=== PATIENT | female | born 1995 ===

== ENCOUNTER 2022-11-05 09:35 | Outpatient (CLI) | payer OTHER, SELFPAY ==
[2022-11-05 13:23] LABS: Chlamydia DNA Amplified* NOT DETECTED (No Detected); GC DNA Amplified* NOT DETECTED (No Detected)
== END 2022-11-05 09:36 | disposition home or self-care (01) ==
PROVIDERS: PCP Physician Assistant Medical; Visit Provider Physician Assistant Medical
DX: Z01.419 Encounter for gynecological examination (general) (routine) without abnormal findings (principal); L81.9 Disorder of pigmentation, unspecified; Z13.6 Encounter for screening for cardiovascular disorders; Z13.1 Encounter for screening for diabetes mellitus; Z11.59 Encounter for screening for other viral diseases; Z11.3 Encounter for screening for infections with a predominantly sexual mode of transmission
CPT/HCPCS: 0353U; 80061; 82947; 86592; 86593; 86703; 86780; 86803

== ENCOUNTER 2022-12-03 08:21 | Outpatient (CLI) | payer OTHER, SELFPAY | END 2022-12-03 08:22 | disposition home or self-care (01) | LOC: NFLDREF 12-05 14:21 | PROVIDERS: PCP Physician Assistant Medical; Referring Provider Physician Assistant Medical; Visit Provider Physician Assistant Medical | DX: Z11.3 Encounter for screening for infections with a predominantly sexual mode of transmission (principal) | CPT/HCPCS: 86592 ==